=== PATIENT | male | born 1975 | race Two or more races ===

== ENCOUNTER → 2016-09-23 | Outpatient (CLI) | payer OTHER | LOC: BRMIMAGING 09:09 | PROVIDERS: ATTEND Internal Medicine | DX: S62.630A Displaced fracture of distal phalanx of right index finger, initial encounter for closed fracture (principal) | CPT/HCPCS: 73140-PO ==

== ENCOUNTER → 2016-10-29 | Outpatient (CLI) | payer OTHER | LOC: BRMIMAGING 11:09 | PROVIDERS: ATTEND Internal Medicine | DX: S62.630A Displaced fracture of distal phalanx of right index finger, initial encounter for closed fracture (principal) | CPT/HCPCS: 73140-PO ==